=== PATIENT | female | born 1980 | race Caucasian/White ===

== ENCOUNTER 2019-01-20 21:57 | Emergency (ER) | payer SELFPAY ==
[~2019-01-20] VITALS: Ht 154.9 cm; Wt 83.6 kg
[2019-01-20 22:10] VITALS: BP 139/70
--- NOTE | 2019-01-20 22:15 | NUR ---
TO LOBBY A/W BED, CHRISTY REEVES NOTED
[2019-01-20 22:50] LABS: BASOPHILS # (AUTO) 0.1 K/uL (0.00-0.22); BASOPHILS % (AUTO) 0.6 % (0.0-2.0); EOSINOPHILS # (AUTO) 0.1 K/uL (0-0.4); EOSINOPHILS % (AUTO) 1.2 % (0.0-4.0); HEMATOCRIT 40.5 % (36-48); HEMOGLOBIN 13.8 g/dL (12.0-16.0); MEAN CORPUSCULAR HEMOGLOBIN 31 pg (27-31); MEAN CORPUSCULAR HGB CONC 34 g/dL (33-37); MEAN CORPUSCULAR VOLUME 90.4 fL (80-94); MONOCYTES # (AUTO) 0.8 K/uL (0.8-1.0); MONOCYTES % (AUTO) 6.6 % (1.7-9.3); NEUTROPHILS # (AUTO) 8.1 K/uL (1.8-7.7); NEUTROPHILS % (AUTO) 66.6 % (42.2-75.2); PLATELET COUNT (AUTO) 297 K/uL (140-450); RED BLOOD CELL COUNT(AUTO) 4.48 MIL/uL (4.20-5.40); WHITE BLOOD COUNT (AUTO) 12.1 K/uL (4.8-10.8)
[2019-01-20 23:16] LABS: ALBUMIN 3.8 g/dL (3.4-5.0); ANION GAP 12.9 (8-16); CARBON DIOXIDE 26.8 mmol/L (21-32); CREATININE 0.9 mg/dL (0.6-1.3); POTASSIUM 3.7 mmol/L (3.5-5.1); TOTAL BILIRUBIN 0.1 mg/dL (0.0-1.0)
--- NOTE | 2019-01-20 23:49 | NUR ---
PT AMBULATED TO BED 9
--- NOTE | 2019-01-21 00:05 | NUR ---
PT BIB DAUGHTER C/O ABD PAIN. PT STATES 8/10 CRAMPING PAIN TO LOWER ABD X6 DAYS, RADIATES TO LOWER BACK. DENIES TRAUMA. +NAUSEA. LMP:12/12/18. LBM: TODAY, PT STATES NORMAL BM. DENIES DYSRUIA, OR HEMATURIA. PT ACTING APPROPRIATY, SKIN WARM, DRY AND INTACT. BOWEL SOUNDS ACTIVE X4 QUAD. LUNG SOUND CLEAR BL. PT IN GOWN, IN BED; BED IN LOWER LOCKED POSITION. ER MD AWARE OF PT STATUS. WILL CONTINUE TO MONITOR. PMH: DENIES RX: DENIES
[2019-01-21 01:45] LABS: APPEARANCE,URINE CLEAR (CLEAR); BILIRUBIN,URINE NEGATIVE (NEGATIVE); BLOOD, URINE 2+ (NEGATIVE); COLOR,URINE YELLOW (YELLOW); LEUKOCYTE ESTERASE ,URINE NEGATIVE (NEGATIVE); NITRITE, URINE NEGATIVE (NEGATIVE); UGLUCOSE NEGATIVE (NEGATIVE)
[2019-01-21 01:58] LABS: RBC,URINE 0-5 /HPF (0-5)
[2019-01-21 01:59] LABS: WBC,URINE 0-5 /HPF (0-5)
[2019-01-21 02:26] VITALS: BP 128/69
--- NOTE | 2019-01-21 02:26 | NUR ---
Patient discharged with v/s stable. Patient acting appropriatly, states 3/10 pain at this time, and is ready to go home Written and verbal after care instructions given and explained. Patient alert, oriented and verbalized understanding of instructions. Ambulatory with steady gait. All questions addressed prior to discharge. ID band removed. Patient advised to follow up with PMD. Rx of Ciprofloxacin given. Patient educated on indication of medication including possible reaction and side effects. Opportunity to ask questions provided and answered.
== END 2019-01-21 02:26 | disposition home or self-care (01) ==
LOC: MED 21:57
DX: N93.9 Abnormal uterine and vaginal bleeding, unspecified (principal); R35.0 Frequency of micturition
CPT/HCPCS: 36415; 80053; 81001; 81025; 85025; 87086; 99283

== ENCOUNTER 2019-06-26 21:23 | Emergency (ER) | payer MEDICAID ==
[~2019-06-26] VITALS: Ht 154.9 cm; Wt 81.6 kg
[2019-06-26 21:45] VITALS: BP 170/88
[2019-06-26] MEDS ORDERED: traMADol 50 MG TAB PO ONE (22:20)
[2019-06-26] MEDS ORDERED: KETOROLAC 60 MG/2 ML VIAL IM ONE (22:20)
[2019-06-27 00:09] VITALS: BP 115/65
== END 2019-06-27 00:09 | disposition home or self-care (01) ==
LOC: MED 21:23
DX: R51 Headache (principal); H53.8 Other visual disturbances
CPT/HCPCS: 70450; 81002; 81025; 96372; 99284; J1885

== ENCOUNTER 2019-07-02 20:16 | Emergency (ER) | payer MEDICAID ==
[~2019-07-02] VITALS: Ht 154.9 cm; Wt 82.6 kg
[2019-07-02 20:28] VITALS: BP 151/81
[2019-07-03 03:04] VITALS: BP 128/75
== END 2019-07-03 03:04 | disposition home or self-care (01) ==
LOC: MED 20:16
DX: M79.641 Pain in right hand (principal); M54.5 Low back pain; M25.561 Pain in right knee; M25.571 Pain in right ankle and joints of right foot
CPT/HCPCS: 73562; 73630; 99283; Q0092; 81025

== ENCOUNTER 2019-11-07 08:28 | Emergency (ER) | payer SELFPAY ==
[~2019-11-07] VITALS: Ht 154.9 cm; Wt 81.3 kg
[2019-11-07 08:35] VITALS: BP 116/54
--- NOTE | 2019-11-07 08:43 | NUR ---
39/F BIB FAMILY C/O COUGH X 1.5 WEEK, N/V, HEADACHE X YESTERDAY.MED HX:DENIES. PATIENT STATES PAIN OF 9/10 AT THIS TIME. PATIENT POSITIONED FOR COMFORT; HOB ELEVATED; BEDRAILS UP X1; BED DOWN. ER MD MADE AWARE OF PT STATUS.
[2019-11-07] MEDS ORDERED: ONDANSETRON 4 MG ODT PO ONE (09:10)
[2019-11-07] MEDS ORDERED: ALBUTEROL 0.083% 2.5 MG/3 ML NEBU INH ONE (09:10)
[2019-11-07] MEDS ORDERED: IPRATROPIUM 0.02% 0.5 MG/2.5 ML NEBU INH ONE (09:10)
[2019-11-07] MEDS ORDERED: predniSONE 20 MG TAB PO ONE (09:10)
--- NOTE | 2019-11-07 09:25 | NUR ---
RT AT BEDSIDE.
--- NOTE | 2019-11-07 09:49 | NUR ---
CHILD AND ADOLESCENT PSYCHIATRIST AT BEDSIDE FOR CHEST X-RAY
[2019-11-07 10:30] VITALS: BP 117/60
--- NOTE | 2019-11-07 10:30 | NUR ---
Patient discharged with v/s stable. Written and verbal after care instructions given and explained. Patient alert, oriented and verbalized understanding of instructions. Ambulatory with steady gait. All questions addressed prior to discharge. ID band removed. Patient advised to follow up with PMD. Rx of ZOFRAN,AEROCHAMBER,PREDNISONE,ALBUTEROL given. Patient educated on indication of medication including possible reaction and side effects. Opportunity to ask questions provided and answered.
== END 2019-11-07 10:30 | disposition home or self-care (01) ==
LOC: MED 08:28
DX: B34.9 Viral infection, unspecified (principal); J98.01 Acute bronchospasm; Z98.890 Other specified postprocedural states
CPT/HCPCS: 71045; 94640; 99283; J7512; J7613; J7644; Q0162

== ENCOUNTER 2021-11-16 19:32 | Emergency (ER) | payer MEDICAID ==
[~2021-11-16] VITALS: Ht 154.9 cm; Wt 90.7 kg
[2021-11-16 19:45] VITALS: BP 152/87
--- NOTE | 2021-11-16 19:48 | NUR ---
TO LOBBY A/W BED AMBULATORY
[2021-11-16] MEDS ORDERED: ACETAMINOPHEN EXTRA STRENGTH 500 MG TAB PO ONE (20:50)
[2021-11-16 21:44] LABS: BASOPHILS % (AUTO) 0.4 % (0.0-2.0); EOSINOPHILS # (AUTO) 0.3 K/uL (0-0.4); EOSINOPHILS % (AUTO) 2.9 % (0.0-4.0); HEMATOCRIT 38.8 % (36-48); HEMOGLOBIN 13.4 g/dL (12.0-16.0); LYMPHOCYTES # (AUTO) 2.8 K/uL (2.5-16.5); LYMPHOCYTES % (AUTO) 27.8 % (20.5-51.1); MEAN CORPUSCULAR HEMOGLOBIN 31 pg (27-31); MEAN CORPUSCULAR HGB CONC 35 g/dL (33-37); MEAN CORPUSCULAR VOLUME 88.5 fL (80-94); MONOCYTES # (AUTO) 0.6 K/uL (0.8-1.0); MONOCYTES % (AUTO) 5.5 % (1.7-9.3); NEUTROPHILS # (AUTO) 6.3 K/uL (1.8-7.7); NEUTROPHILS % (AUTO) 63.4 % (42.2-75.2); PLATELET COUNT (AUTO) 345 K/uL (140-450); RED BLOOD CELL COUNT(AUTO) 4.39 MIL/uL (4.20-5.40)
[2021-11-16 21:55] LABS: APPEARANCE,URINE CLEAR (CLEAR); BILIRUBIN,URINE NEGATIVE (NEGATIVE); BLOOD, URINE TRACE-I (NEGATIVE); COLOR,URINE YELLOW (YELLOW); LEUKOCYTE ESTERASE ,URINE NEGATIVE (NEGATIVE); NITRITE, URINE NEGATIVE (NEGATIVE); UGLUCOSE NEGATIVE (NEGATIVE)
[2021-11-16 22:01] LABS: ALBUMIN 3.6 g/dL (3.4-5.0); ANION GAP 11.6 (8-16); CARBON DIOXIDE 28.1 mmol/L (21-32); CREATININE 0.7 mg/dL (0.6-1.3); POTASSIUM 3.7 mmol/L (3.5-5.1); TOTAL BILIRUBIN 0.2 mg/dL (0.0-1.0)
[2021-11-16 22:13] LABS: RBC,URINE 0-5 /HPF (0-5); WBC,URINE 0-5 /HPF (0-5)
[2021-11-16 22:34] VITALS: BP 128/79
--- NOTE | 2021-11-16 22:34 | NUR ---
Patient discharged with v/s stable. Written and verbal after care instructions given and explained. Patient verbalized understanding. Ambulatory with steady gait. All questions addressed prior to discharge. Advised to follow up with PMD.
== END 2021-11-16 22:32 | disposition home or self-care (01) ==
LOC: MED 19:32
DX: R07.9 Chest pain, unspecified (principal); R51.9 Headache, unspecified; R42 Dizziness and giddiness
CPT/HCPCS: 36415; 70450; 71045; 80053; 81001; 84484; 84702; 85025; 87086; 93005; 99285

== ENCOUNTER 2022-05-22 22:49 | Emergency (ER) | payer SELFPAY ==
[~2022-05-22] VITALS: Ht 154.9 cm; Wt 95.7 kg
[2022-05-22 23:01] VITALS: BP 153/68
--- NOTE | 2022-05-22 23:03 | NUR ---
PT TO LOBBY TO A/W EVALUATION
--- NOTE | 2022-05-22 23:14 | NUR ---
PT EVALUATED BY DR. CLAYTON
[2022-05-22] MEDS ORDERED: ASPIRIN 325 MG TAB PO ONE (23:25)
[2022-05-22] MEDS ORDERED: NITROGLYCERIN 0.4 MG TAB SL ONE (23:25)
--- NOTE | 2022-05-23 00:01 | NUR ---
PT TO BED #7
[2022-05-23 01:05] LABS: ALBUMIN 3.5 g/dL (3.4-5.0); ANION GAP 11.6 (8-16); ASPARTATE AMINOTRANSFERASE 26 U/L (15-37); CARBON DIOXIDE 26.7 mmol/L (21-32); CHLORIDE 104 mmol/L (98-107); CREATININE 0.8 mg/dL (0.6-1.3); GFR ARICAN-AMERICAN 100 mL/min (>90); GLUCOSE 144 mg/dL (74-106); POTASSIUM 3.3 mmol/L (3.5-5.1); SODIUM SERUM 139 mmol/L (136-145); TOTAL BILIRUBIN 0.2 mg/dL (0.0-1.0); UREA NITROGEN, BLOOD 13 mg/dL (7-18)
[2022-05-23 01:15] LABS: BASOPHILS % (AUTO) 0.4 % (0.0-2.0); EOSINOPHILS # (AUTO) 0.3 K/uL (0-0.4); HEMATOCRIT 38.1 % (36-48); LYMPHOCYTES # (AUTO) 3.2 K/uL (2.5-16.5); LYMPHOCYTES % (AUTO) 34.6 % (20.5-51.1); MEAN CORPUSCULAR HEMOGLOBIN 31 pg (27-31); MEAN CORPUSCULAR HGB CONC 34 g/dL (33-37); MEAN CORPUSCULAR VOLUME 89.8 fL (80-94); MONOCYTES # (AUTO) 0.7 K/uL (0.8-1.0); MONOCYTES % (AUTO) 7.7 % (1.7-9.3); NEUTROPHILS % (AUTO) 54.3 % (42.2-75.2); PLATELET COUNT (AUTO) 287 K/uL (140-450); RED BLOOD CELL COUNT(AUTO) 4.24 MIL/uL (4.20-5.40); RED CELL DISTRIBUTION WIDTH 13.6 % (11.6-13.7); WHITE BLOOD COUNT (AUTO) 9.3 K/uL (4.8-10.8)
[2022-05-23] MEDS ORDERED: POTASSIUM CHLORIDE 10 MEQ TABER PO ONE ×2 (01:15→02:53)
--- NOTE | 2022-05-23 03:22 | NUR ---
Patient discharged. Written and verbal after care instructions given and explained. Patient verbalized understanding. Ambulatory with steady gait. ID band removed. All questions addressed prior to discharge. Advised to follow up with PMD.
[2022-05-23 03:24] VITALS: BP 155/80
== END 2022-05-23 03:22 | disposition home or self-care (01) ==
LOC: MED 22:49
DX: R07.89 Other chest pain (principal); Z20.822 Contact with and (suspected) exposure to COVID-19; E87.6 Hypokalemia
CPT/HCPCS: 36415; 71045; 80053; 84484; 85025; 93005; 99285

== ENCOUNTER 2022-06-10 01:35 | Emergency (ER) | payer SELFPAY ==
[~2022-06-10] VITALS: Ht 157.5 cm; Wt 83.9 kg
[2022-06-10 01:41] VITALS: BP 144/90
--- NOTE | 2022-06-10 01:43 | NUR ---
seen and examined by BISHOP
[2022-06-10] MEDS ORDERED: DIPH25TA53 PO (01:48)
[2022-06-10] MEDS ORDERED: METR0.756 TP (01:48)
[2022-06-10] MEDS ORDERED: PRED20TA5 PO (01:48)
[2022-06-10] MEDS ORDERED: FAMO-92 PO (01:48)
[2022-06-10] MEDS ORDERED: FAMOTIDINE 20 MG TAB PO ONE (01:50)
[2022-06-10] MEDS ORDERED: diphenhydrAMINE 50 MG/ML VIAL IM ONE (01:50)
[2022-06-10] MEDS ORDERED: methylPREDNISolone SS 125 MG/2 ML VIAL IVP ONE (01:50)
--- NOTE | 2022-06-10 01:50 | NUR ---
medicated as per ERMDs order, tolerated well.
[2022-06-10 02:15] VITALS: BP 121/79
--- NOTE | 2022-06-10 02:15 | NUR ---
Patient discharged with v/s stable. Written and verbal after care instructions given and explained. Patient alert, oriented and verbalized understanding of instructions. Ambulatory with steady gait. All questions addressed prior to discharge. ID band removed. Patient advised to follow up with PMD. Rx of benadryl, pedcid, deltasone, mterocream given. Patient educated on indication of medication including possible reaction and side effects. Opportunity to ask questions provided and answered.
== END 2022-06-10 02:15 | disposition home or self-care (01) ==
LOC: MED 01:35
DX: R21 Rash and other nonspecific skin eruption (principal); Z79.899 Other long term (current) drug therapy
CPT/HCPCS: 96372; 99284; J1200; J2930

== ENCOUNTER 2022-10-11 16:06 | Emergency (ER) | payer SELFPAY ==
[~2022-10-11] VITALS: Ht 162.6 cm; Wt 83.9 kg
[~2022-10-11 16:06] MED LIST: DIPH25TA53 PO; FAMO-92 PO; METR0.756 TP; PRED20TA5 PO
[2022-10-11 16:26] VITALS: BP 149/94
[2022-10-11] MEDS ORDERED: ACET-10509 PO (17:47)
[2022-10-11] MEDS ORDERED: PROM118S5 PO (17:47)
[2022-10-11] MEDS ORDERED: ALBU0.0912 IH (17:47)
== END 2022-10-11 17:51 | disposition home or self-care (01) ==
LOC: MED 16:06
DX: J06.9 Acute upper respiratory infection, unspecified (principal); J45.909 Unspecified asthma, uncomplicated
CPT/HCPCS: 99283